=== PATIENT | male | born 1980 | race African-American/Black ===

== ENCOUNTER 2024-06-24 08:54 | Emergency (ER) | payer MEDICAID ==
[~2024-06-24] VITALS: Ht 180.3 cm; Wt 90.0 kg
[2024-06-24 09:04] VITALS: O2SAT 99
[2024-06-24 11:27] LABS: CLARITY URINE CLEAR (CLEAR); COLOR URINE YELLOW (YELLOW); GLUCOSE URINE NEGATIVE (NEGATIVE); KETONES URINE NEGATIVE (NEGATIVE); LEUKOCYTE ESTERASE URINE NEGATIVE (NEGATIVE); NITRITE URINE NEGATIVE (NEGATIVE); OCCULT BLOOD URINE NEGATIVE (NEGATIVE); PROTEIN URINE NEGATIVE (NEGATIVE); SPECIFIC GRAVITY URINE 1.011 (1.005-1.030); UROBILINOGEN URINE 0.2 E.U./dL (0.2-1.0)
[2024-06-24] MEDS ORDERED: DOXY100T2 MT (11:49)
[2024-06-24 12:00] VITALS: BP 130/72; PULSE 87; RESP 18; TEMP 37.05852; O2SAT 99
[2024-06-24] MEDS: DOXYCYCLINE HYCLATE 100MG CAPSULE PO ONE (12:00)
[2024-06-24] MEDS: CEFTRIAXONE 1GM/50ML 50 ML IV ONE (12:00)
== END 2024-06-24 12:10 | disposition home or self-care (01) ==
LOC: ER 08:54
DX: Z20.2 Contact with and (suspected) exposure to infections with a predominantly sexual mode of transmission (principal)
CPT/HCPCS: 99284; 96365; 81003; J0696